=== PATIENT | female | born 1955 | race Caucasian/White ===

== ENCOUNTER 2021-04-02 10:01 | Inpatient (IN) | payer MEDICARE, MEDICAID ==
[~2021-04-02] VITALS: Ht 152.4 cm; Wt 63.5 kg
[~2021-04-02 10:01] MED LIST: CARAFATE1 GM/10 ML PO; CARVEDILOL3.125 MG PO; ELIQUIS5 M1 PO; FENOFIBRATE160 MG PO; FIBER TABLETS625 MG PO; FLONASE ALLERG9.9 ML NAS; GABAPENTIN100 M2 PO; GAVILAX17 GM PO; IBUPROFEN IB200 M1 PO; Ipratropium Brom3 ML INH; KLONOPIN1 M1 PO; LEVSIN0.125 M2 PO; LIDODERM1 EACH T; LISINOPRIL5 MG PO; LOPERAMIDE HCL2 MG PO; MAALOX MAXIMUM355 ML PO; MINIPRESS2 M2 PO; MULTIVITAMINS1 EAC6 PO; MYRBETRIQ25 M1 PO; MYRBETRIQ8 MG/1 ML PO; OMEPRAZOLE20 M2 PO; ONDANSETRON HYDR4 M1 PO; OXYBUTYNIN5 MG PO; PEPTO-BISM262 MG/11 PO; PREDNISONE10 M1 PO; PREDNISONE20 M1 PO; RISPERDAL1 M1 PO; RISPERDAL3 M1 PO; ST. JOSEPH ASPI81 MG PO; VISTARIL50 MG PO; VITAMIN D3125 MC1 PO; WOMAN'S LAXATIVE5 M1 PO; ZYPREXA10 M1 PO
[2021-04-02] MEDS ORDERED: CLONAZEPAM0.5 M2 PO (10:34)
[2021-04-02] MEDS ORDERED: FLUVOXAMINE50 MG PO (10:34)
[2021-04-02] MEDS ORDERED: FANAPT2 MG PO (10:34)
[2021-04-02 12:41] VITALS: BP 110/59
[2021-04-02 20:00] VITALS: BP 124/52
[2021-04-03 08:14] VITALS: BP 139/50
[2021-04-03 20:00] VITALS: BP 104/55
[2021-04-04 07:57] LABS: ALBUMIN 3.1 gm/dl (3.1-4.5); CREATININE 1.91 mg/dL (0.55-1.02); TOTAL PROTEIN 6.2 gm/dL (6.4-8.2)
[2021-04-04 08:00] VITALS: BP 90/64
[2021-04-04 08:08] LABS: POTASSIUM 5.3 mmol/L (3.5-5.1)
[2021-04-04 17:05] VITALS: BP 70/40
[2021-04-05 08:00] VITALS: BP 112/52
[2021-04-05 08:22] LABS: BUN 18 mg/dl (7-24); CHLORIDE 102 mmol/L (98-107); CREATININE 0.56 mg/dL (0.55-1.02); POTASSIUM 4.7 mmol/L (3.5-5.1); SODIUM 128 mmol/L (136-145)
[2021-04-05 20:00] VITALS: BP 120/56
[2021-04-06 07:00] LABS: CHLORIDE 104 mmol/L (98-107); CREATININE 0.31 mg/dL (0.55-1.02); SODIUM 131 mmol/L (136-145)
[2021-04-06 07:01] LABS: BUN 7 mg/dl (7-24)
[2021-04-06 07:02] LABS: POTASSIUM 4.5 mmol/L (3.5-5.1)
[2021-04-06 07:39] VITALS: BP 105/57
[2021-04-06 20:00] VITALS: BP 96/52
[2021-04-07 07:01] LABS: BASO % 0.5 % (0.0-1.0); EOS # 0.2 10*3/uL (0.0-0.4); EOS % 1.9 % (1.0-4.0); HEMATOCRIT 34.6 % (37.0-47.0); LYMPH # 2.9 10*3/uL (1.3-4.4); LYMPH % 34.1 % (27.0-41.0); MEAN CELL VOLUME 91.3 fl (81.0-99.0); MEAN CORPUSCULAR HGB 29.6 pg (27.0-31.0); MEAN CORPUSCULAR HGB CONC 32.4 g/dl (33.0-37.0); MEAN PLATELET VOLUME 8.9 fl (9.6-12.3); MONO # 0.7 10*3/uL (0.1-1.0); MONO % 8.2 % (3.0-9.0); NEUT # 4.6 10*3/uL (2.3-7.9); NEUT % 54.7 % (47.0-73.0); PLATELET COUNT AUTOMATED 202 10*3/uL (130-400); RED BLOOD COUNT 3.79 10*6/uL (4.10-5.10); RED CELL DISTRI WIDTH 14.2 % (0-14.5); WHITE BLOOD COUNT 8.4 10*3/uL (4.8-10.8)
[2021-04-07 07:22] LABS: CHLORIDE 109 mmol/L (98-107); POTASSIUM 4.4 mmol/L (3.5-5.1); SODIUM 134 mmol/L (136-145)
[2021-04-07 07:29] LABS: ALBUMIN 2.5 gm/dl (3.1-4.5); ALKALINE PHOSPHATASE 55 U/L (45-117); BUN 14 mg/dl (7-24); CREATININE 0.36 mg/dL (0.55-1.02); SGOT/AST 9 IU/L (3-35); SGPT/ALT 20 U/L (12-78); TOTAL PROTEIN 5.8 gm/dL (6.4-8.2)
[2021-04-07 07:47] VITALS: BP 125/63
[2021-04-07 20:00] VITALS: BP 102/42
[2021-04-08 07:51] VITALS: BP 108/60
[2021-04-08 07:56] VITALS: BP 108/60
[2021-04-08 16:44] LABS: BILIRUBIN Negative (Negative); BLOOD 1+ (Negative); CLARITY Cloudy (Clear); COLOR Yellow (Yellow); GLUCOSE Negative (Negative); KETONE Negative (Negative); LEUKO ESTERASE 3+ (Negative); NITRITE Negative (Negative); PH 5.5 (4.5-8.0); SPECIFIC GRAVITY <= 1.005 (1.001-1.030); UROBILINOGEN 0.2 E.U./dl (0.0-1.0)
[2021-04-08 18:36] LABS: BACTERIA 2+; WBC TNTC wbc/hpf (0-5); YEAST 3+
[2021-04-08 20:00] VITALS: BP 98/58
[2021-04-09 08:12] VITALS: BP 123/96
[2021-04-09] MEDS ORDERED: OMNICEF300 MG PO (10:57)
[2021-04-09 10:59] LABS: ALBUMIN 3.1 gm/dl (3.1-4.5); ALKALINE PHOSPHATASE 68 U/L (45-117); BUN 10 mg/dl (7-24); CHLORIDE 102 mmol/L (98-107); CREATININE 0.51 mg/dL (0.55-1.02); POTASSIUM 4.2 mmol/L (3.5-5.1); SGOT/AST 25 IU/L (3-35); SGPT/ALT 33 U/L (12-78); SODIUM 134 mmol/L (136-145); TOTAL PROTEIN 6.5 gm/dL (6.4-8.2)
[2021-04-09] MEDS ORDERED: ROZEREM8 MG PO (12:21)
[2021-04-09] MEDS ORDERED: FANAPT6 MG PO (12:21)
[2021-04-09] MEDS ORDERED: ATARAX,VISTARIL50 MG PO (12:21)
== END 2021-04-09 14:14 | DRG 885 ==
LOC: 3N 10:01
PROVIDERS: Counselor Professional; Family Medicine; Internal Medicine; ADMIT Psychiatry & Neurology Psychiatry; ATTEND Psychiatry & Neurology Psychiatry
DX: F25.0 Schizoaffective disorder, bipolar type (principal); N17.0 Acute kidney failure with tubular necrosis; E87.1 Hypo-osmolality and hyponatremia; N30.01 Acute cystitis with hematuria; E46 Unspecified protein-calorie malnutrition; Z20.822 Contact with and (suspected) exposure to COVID-19; Z66 Do not resuscitate; R73.9 Hyperglycemia, unspecified; F43.10 Post-traumatic stress disorder, unspecified; J44.9 Chronic obstructive pulmonary disease, unspecified; I48.91 Unspecified atrial fibrillation; G62.89 Other specified polyneuropathies; K21.9 Gastro-esophageal reflux disease without esophagitis; G47.33 Obstructive sleep apnea (adult) (pediatric); Z91.041 Radiographic dye allergy status; Z91.040 Latex allergy status; Z79.82 Long term (current) use of aspirin; Z79.899 Other long term (current) drug therapy; Z68.27 Body mass index [BMI] 27.0-27.9, adult

== ENCOUNTER 2024-12-12 19:06 | Inpatient (IN) | payer MEDICARE, MEDICAID ==
[~2024-12-12] VITALS: Ht 162.5 cm; Wt 96.7 kg
[~2024-12-12 19:06] MED LIST changes: +ATARAX,VISTARIL50 MG PO; +CLONAZEPAM0.5 M2 PO; +FANAPT2 MG PO; +FANAPT6 MG PO; +FLUVOXAMINE50 MG PO; +OMNICEF300 MG PO; +ROZEREM8 MG PO
[2024-12-12] MEDS ORDERED: RISPERDAL2 M1 PO (21:12)
[2024-12-12] MEDS ORDERED: CEFUROXIME AXE500 MG PO (21:15)
[2024-12-12] MEDS ORDERED: HYDROMORPHONE2 MG PO (21:16)
[2024-12-12] MEDS ORDERED: ADV 100/50 INH (21:17)
[2024-12-12] MEDS ORDERED: BENZONATATE200 MG PO (21:18)
[2024-12-12] MEDS ORDERED: HYDROXYZINE PAM50 MG PO (21:18)
[2024-12-12] MEDS ORDERED: PACERONE200 MG PO (21:19)
[2024-12-12] MEDS ORDERED: CARAFATE1 G1 PO (21:20)
[2024-12-12] MEDS ORDERED: DULOXETINE HCL30 MG PO (21:20)
[2024-12-12] MEDS ORDERED: HEARTBURN RELIE20 MG PO (21:21)
[2024-12-12] MEDS ORDERED: GEMFIBROZIL600 MG PO (21:22)
[2024-12-12] MEDS ORDERED: NEURONTIN100 MG PO (21:22)
[2024-12-12] MEDS ORDERED: TRAZODONE100 MG PO (21:23)
[2024-12-12] MEDS ORDERED: KLONOPIN1 M1 PO (21:27)
[2024-12-12] MEDS ORDERED: LORazepam 1 MG TAB PO PRN (21:35)
[2024-12-12] MEDS ORDERED: hydrOXYzine hydrochloride 50 MG/ML VIAL IM PRN (21:35)
[2024-12-12] MEDS ORDERED: Water, Sterile 10 ML VIAL IM PRN (21:40)
[2024-12-13] MEDS ORDERED: MG-AL HYDROXIDE/SIMETICONE 30 ML UDC PO PRN (01:45)
[2024-12-13] MEDS ORDERED: ACETAMINOPHEN 325 MG TAB PO PRN (01:45)
[2024-12-13] MEDS ORDERED: Menthol/Zinc Oxide 4 GM THIN T PRN (01:55)
[2024-12-13 01:58] VITALS: BP 142/52
[2024-12-13] MEDS ORDERED: BUDESONIDE 0.5 MG AMP NEB SCH (03:30)
[2024-12-13 06:47] LABS: BASO # 0.1 10*3/uL (0.0-0.1); BASO % 0.6 % (0.0-1.0); EOS # 0.2 10*3/uL (0.0-0.4); EOS % 2.4 % (1.0-4.0); MEAN CELL VOLUME 92.9 fl (81.0-99.0); MEAN CORPUSCULAR HGB 29.8 pg (27.0-31.0); MEAN PLATELET VOLUME 9.4 fl (9.6-12.3); MONO # 0.6 10*3/uL (0.1-1.0); MONO % 7.0 % (3.0-9.0); NEUT # 6.9 10*3/uL (2.3-7.9); NEUT % 78.0 % (47.0-73.0); NUCLEATED RED BLOOD CELL 0.0 % (0.0-0.0); NUCLEATED RED BLOOD CELL 0.0 10*3/uL (0.0-0.0); PLATELET COUNT AUTOMATED 188 10*3/uL (130-400); RED CELL DISTRI WIDTH 13.0 % (0-14.5)
[2024-12-13 07:18] LABS: BUN 10 mg/dl (9-23); LDL CHOLESTEROL 49 mg/dL (9-159); SGPT/ALT 54 U/L (5-49)
[2024-12-13] MEDS ORDERED: SUCRALFATE 1 GM TAB PO SCH (07:30)
[2024-12-13 08:00] VITALS: BP 159/55
[2024-12-13 08:42] LABS: VITAMIN D, 25-HYDROXY 74.7 ng/mL (30-100)
[2024-12-13] MEDS ORDERED: GABAPENTIN 100 MG CAP PO SCH (09:00)
[2024-12-13] MEDS ORDERED: risperiDONE 1 MG TAB PO SCH (09:00)
[2024-12-13] MEDS ORDERED: APIXABAN 5 MG TAB PO SCH (09:00)
[2024-12-13] MEDS ORDERED: FAMOTIDINE 20 MG TAB PO SCH (09:00)
[2024-12-13] MEDS ORDERED: GEMFIBROZIL 600 MG TAB PO SCH (09:00)
[2024-12-13] MEDS ORDERED: Amiodarone Hydrochloride 200 MG TAB PO SCH (09:00)
[2024-12-13] MEDS ORDERED: Fluticasone Propionate/Salmeterol 250/50 diskus INH SCH (10:00)
[2024-12-13 14:58] LABS: BILIRUBIN Negative (Negative); BLOOD Trace-Lysed (Negative); CLARITY Cloudy (Clear); COLOR Yellow (Yellow); KETONE Negative (Negative); LEUKO ESTERASE 3+ (Negative); NITRITE Negative (Negative); PH 7.0 (4.5-8.0); SPECIFIC GRAVITY 1.010 (1.001-1.030); UROBILINOGEN 0.2 E.U./dl (0.0-1.0)
[2024-12-13 15:12] LABS: BACTERIA 3+; WBC 51-100 wbc/hpf (0-5)
[2024-12-13 20:00] VITALS: BP 148/98
[2024-12-14 08:00] VITALS: BP 141/58
[2024-12-14] MEDS ORDERED: CEFDINIR 300 MG CAP PO SCH (11:25)
[2024-12-14 20:00] VITALS: BP 150/62
[2024-12-15 08:00] VITALS: BP 164/95
[2024-12-15 20:00] VITALS: BP 150/67
[2024-12-15] MEDS ORDERED: Trihexyphenidyl Hydrochlorid 2 MG TAB PO SCH (21:00)
[2024-12-15] MEDS ORDERED: BREXPIPRAZOLE 1 MG TABLET PO SCH (21:00)
[2024-12-16 09:27] VITALS: BP 151/49
[2024-12-16 20:00] VITALS: BP 146/60
[2024-12-17 08:00] VITALS: BP 152/76
[2024-12-17 20:00] VITALS: BP 139/50
[2024-12-18 08:00] VITALS: BP 140/63
[2024-12-18] MEDS ORDERED: PETROLATUM 42% 100 GM JAR T PRN (18:15)
[2024-12-18] MEDS ORDERED: BLISTEX T PRN (18:15)
[2024-12-18 20:00] VITALS: BP 146/62
[2024-12-18] MEDS ORDERED: Trihexyphenidyl Hydrochlorid 2 MG TAB PO SCH (21:00)
[2024-12-19 08:00] VITALS: BP 144/52
[2024-12-19 20:12] VITALS: BP 138/54
[2024-12-19] MEDS ORDERED: BREXPIPRAZOLE 2 MG TABLET PO SCH (21:00)
[2024-12-20 08:00] VITALS: BP 150/60
[2024-12-20 20:41] VITALS: BP 152/62
[2024-12-21 05:59] LABS: BUN 9 mg/dl (9-23); SGPT/ALT 58 U/L (5-49)
[2024-12-21 06:20] LABS: BASO # 0.1 10*3/uL (0.0-0.1); BASO % 0.7 % (0.0-1.0); EOS # 0.5 10*3/uL (0.0-0.4); EOS % 5.3 % (1.0-4.0); MEAN CELL VOLUME 92.1 fl (81.0-99.0); MEAN CORPUSCULAR HGB 29.6 pg (27.0-31.0); MEAN PLATELET VOLUME 9.6 fl (9.6-12.3); MONO # 1.1 10*3/uL (0.1-1.0); MONO % 11.6 % (3.0-9.0); NEUT # 5.2 10*3/uL (2.3-7.9); NEUT % 53.1 % (47.0-73.0); NUCLEATED RED BLOOD CELL 0.0 % (0.0-0.0); NUCLEATED RED BLOOD CELL 0.0 10*3/uL (0.0-0.0); PLATELET COUNT AUTOMATED 209 10*3/uL (130-400); RED CELL DISTRI WIDTH 13.1 % (0-14.5)
[2024-12-21 09:05] VITALS: BP 149/46
[2024-12-21 20:00] VITALS: BP 144/51
[2024-12-22 07:48] VITALS: BP 151/46
[2024-12-22 20:00] VITALS: BP 152/52
[2024-12-23] MEDS ORDERED: KLONOPIN2 M1 PO (00:42)
[2024-12-23] MEDS ORDERED: FLUVOXAMINE50 MG PO (00:42)
[2024-12-23] MEDS ORDERED: CLONAZEPAM1 MG PO (00:42)
[2024-12-23] MEDS ORDERED: FLUVOXAMINE100 MG PO (00:42)
[2024-12-23] MEDS ORDERED: TRIHEXYPHENIDYL2 M3 PO (00:42)
[2024-12-23] MEDS ORDERED: REXULTI2 MG PO (00:42)
[2024-12-23 08:00] VITALS: BP 123/80
== END 2024-12-23 18:14 | DRG 885 ==
LOC: 3N 19:06
PROVIDERS: Counselor Professional; ADMIT Psychiatry & Neurology Psychiatry; ATTEND Psychiatry & Neurology Psychiatry
PROC: GZHZZZZ Group Psychotherapy (ICD-10-PCS; principal; 2024-12-13)
PROC: GZ56ZZZ Individual Psychotherapy, Supportive (ICD-10-PCS; 2024-12-13)
DX: F25.0 Schizoaffective disorder, bipolar type (principal); G47.33 Obstructive sleep apnea (adult) (pediatric); I11.0 Hypertensive heart disease with heart failure; N30.01 Acute cystitis with hematuria; F43.10 Post-traumatic stress disorder, unspecified; F60.3 Borderline personality disorder; F41.1 Generalized anxiety disorder; F41.0 Panic disorder [episodic paroxysmal anxiety]; I48.91 Unspecified atrial fibrillation; I50.9 Heart failure, unspecified; J44.9 Chronic obstructive pulmonary disease, unspecified; K21.9 Gastro-esophageal reflux disease without esophagitis; E78.5 Hyperlipidemia, unspecified; F22 Delusional disorders; E78.2 Mixed hyperlipidemia; R74.01 Elevation of levels of liver transaminase levels; G89.4 Chronic pain syndrome; F51.01 Primary insomnia; E55.9 Vitamin D deficiency, unspecified; N32.81 Overactive bladder; F42.9 Obsessive-compulsive disorder, unspecified; M81.0 Age-related osteoporosis without current pathological fracture; E11.42 Type 2 diabetes mellitus with diabetic polyneuropathy; Z79.899 Other long term (current) drug therapy; Z79.01 Long term (current) use of anticoagulants; Z79.2 Long term (current) use of antibiotics; Z82.49 Family history of ischemic heart disease and other diseases of the circulatory system; Z82.5 Family history of asthma and other chronic lower respiratory diseases; Z95.0 Presence of cardiac pacemaker; Z90.710 Acquired absence of both cervix and uterus; Z87.891 Personal history of nicotine dependence; Z83.3 Family history of diabetes mellitus; Z88.8 Allergy status to other drugs, medicaments and biological substances; Z91.09 Other allergy status, other than to drugs and biological substances; Z79.82 Long term (current) use of aspirin